=== PATIENT | female | born 1990 | race Caucasian/White ===

== ENCOUNTER → 2023-11-15 | Outpatient (CLI) | payer OTHER ==
--- NOTE | 2023-11-19 11:44 | MR ---
EXAMINATION TYPE: MR pancreas wo/w con DATE OF EXAM: 11/15/2023 2:10 PM CLINICAL INDICATION:Female, 33 years old with history of Z15.01 GENETIC SUSCEPTIBILITY TO MALIGNANT N EOPLAS; Pancreatic screening. BRCA+, family hx pancreatic cancer. COMPARISON: None TECHNIQUE: Multiplanar multi-sequence imaging was performed without contrast. Post contrast imaging was performed. Post IV contrast subtraction images were also submitted for review. IV Contrast: 7.5 cc Gadavist FINDINGS: LOWER CHEST: No gross irregularity. Bilateral breast implants appear intact. ABDOMEN Liver: No evidence for hepatic steatosis or cirrhosis. Gallbladder and Bile ducts: No evidence for ductal dilation, or biliary stricture or evidence of chol edocholithiasis. The gallbladder is within normal limits. Pancreas: No ductal dilation. No evidence for solid mass. Spleen: Normal for size. Adrenal glands: Unremarkable. Kidneys: No evidence for obstructive uropathy. No suspicious renal masses. Stomach and Bowel: No evidence for bowel wall thickening or evidence for obstruction. Retroperitoneum/Peritoneum: No evidence of pneumoperitoneum or free fluid. Vasculature: No aortic aneurysm. Musculoskeletal: The osseous structures appear intact. Lymph Nodes: No gross evidence for lymphadenopathy. Abdominal wall: Unremarkable. IMPRESSION: No evidence for acute process. No evidence for pancreatic neoplasm.
== END | disposition home or self-care (01) ==
LOC: RADMRIMAIN 13:29
PROVIDERS: ATTEND Internal Medicine Gastroenterology
DX: Z15.01 Genetic susceptibility to malignant neoplasm of breast (principal)
CPT/HCPCS: 74183; A9585

== ENCOUNTER → 2024-03-12 | Outpatient (CLI) | payer OTHER ==
--- NOTE | 2024-03-12 15:55 | US ---
EXAMINATION TYPE: US transvaginal DATE OF EXAM: 03/12/2024 COMPARISON: NONE CLINICAL INDICATION: Female, 33 years old with history of Z80.41 FAM HX OV CA Z15.02 GEN SUSCEPTIBILI TY OV C; family hx of breast and ovarian cancer. TECHNIQUE: Transvaginal (TV). Date of LMP: 02/12/24 EXAM MEASUREMENTS: Uterus: 8.1 x 5.6 x 3.7 cm Endometrial Stripe: 0.7 cm Right Ovary: 3.4 x 1.9 x 2.2 cm Left Ovary: 3.9 x 1.8 x 1.7 cm 1. Uterus: Retroverted wnl 2. Endometrium: wnl 3. Right Ovary: multiple follicles seen 4. Left Ovary: multiple follicles seen 5. Bilateral Adnexa: vessels in left adnexa appear dilated. Small amount of free fluid seen in left adnexa 6. Posterior cul-de-sac: wnl IMPRESSION: 1. No evidence for mass. 2. No evidence for acute process. 3. Multiple peripheral follicles can be seen in polycystic ovarian morphology.
== END | disposition home or self-care (01) ==
LOC: RADUSWWP 14:09
PROVIDERS: ATTEND Obstetrics & Gynecology
DX: E28.2 Polycystic ovarian syndrome (principal); Z80.41 Family history of malignant neoplasm of ovary; Z90.13 Acquired absence of bilateral breasts and nipples; Z15.02 Genetic susceptibility to malignant neoplasm of ovary; Z15.01 Genetic susceptibility to malignant neoplasm of breast
CPT/HCPCS: 76830; 86304